=== PATIENT | male | born 1970 | race Caucasian/White ===

== ENCOUNTER → 2021-02-17 | Outpatient (CLI) | payer BC, OTHER ==
[~2021-02-17] MED LIST: ZOCOR20 MG PO
== END ==
LOC: SJCVCIMAG 12:15
PROVIDERS: ATTEND Internal Medicine
DX: I08.2 Rheumatic disorders of both aortic and tricuspid valves (principal); I65.23 Occlusion and stenosis of bilateral carotid arteries; I10 Essential (primary) hypertension

== ENCOUNTER → 2021-02-24 | Outpatient (CLI) | payer BC, OTHER | LOC: SJCVCIMAG 14:31 | PROVIDERS: ATTEND Internal Medicine | DX: E04.1 Nontoxic single thyroid nodule (principal); I44.2 Atrioventricular block, complete; I48.0 Paroxysmal atrial fibrillation; E78.5 Hyperlipidemia, unspecified; Z79.899 Other long term (current) drug therapy; Z95.0 Presence of cardiac pacemaker ==

== ENCOUNTER → 2021-08-18 | Outpatient (CLI) | payer BC, OTHER | LOC: SJCVCIMAG 07:14 | PROVIDERS: ATTEND Internal Medicine | DX: I48.0 Paroxysmal atrial fibrillation (principal); I44.2 Atrioventricular block, complete; E78.5 Hyperlipidemia, unspecified; Z95.0 Presence of cardiac pacemaker; Z79.899 Other long term (current) drug therapy ==

== ENCOUNTER 2021-10-22 23:07 | Inpatient (IN) | payer BC, OTHER ==
[~2021-10-22] VITALS: Ht 180.3 cm; Wt 94.3 kg
[2021-10-22 23:11] VITALS: BP 116/66
[2021-10-22 23:39] LABS: URINE BILIRUBIN NEGATIVE (Negative); URINE BLOOD NEGATIVE (Negative); URINE CLARITY CLEAR; URINE COLOR YELLOW; URINE GLUCOSE-RANDOM* NEGATIVE (Negative); URINE KETONES NEGATIVE (Negative); URINE LEUKOCYTES-REFLEX NEGATIVE (Negative); URINE NITRITE-REFLEX NEGATIVE (Negative); URINE PROTEIN (DIPSTICK) NEGATIVE (Negative); URINE SPECIFIC GRAVITY <= 1.005 (1.005-1.035); URINE UROBILINOGEN 0.2 E.U./dl (0.2-1.0)
[2021-10-22 23:41] LABS: HEMOGLOBIN 15.9 gm/dL (14.0-18.0); MCH 29.7 pg (26.0-34.0)
[2021-10-22 23:42] LABS: ABSOLUTE NEUTROPHILS 3.8 thou/uL (1.4-8.2); BASOPHILS 0.8 % (0.0-2.0); EOSINOPHILS 4.1 % (0.0-3.0); HEMATOCRIT 48.9 % (42.0-52.0); LYMPHOCYTES 28.6 % (24.0-44.0); MCHC 32.6 g/dL (28.0-37.0); MCV 91.1 fL (80.0-100.0); MONOCYTES 11.2 % (1.0-8.0); PLATELET COUNT 208 thou/uL (150-400); POLYS 55.3 % (36.0-66.0); RBC 5.37 mil/uL (4.50-6.00); RDW 13.5 % (10.5-14.5); WBC 6.9 thou/uL (4.0-11.0)
[2021-10-22 23:48] LABS: CALCIUM 9.2 mg/dL (8.5-10.1)
[2021-10-22 23:58] LABS: MAGNESIUM 2.2 mg/dL (1.8-2.4); TOTAL BILIRUBIN 0.3 mg/dL (0.2-1.0); TOTAL PROTEIN 7.7 g/dL (6.4-8.2)
[2021-10-23] VITALS (31 sets, daily range): BP systolic 95–134; BP diastolic 59–102
[2021-10-23 00:34] LABS: INR 0.94; PROTIME 10.3 Seconds (10.5-12.1)
--- NOTE | 2021-10-23 04:00 | NUR ---
This RN admitted patient at 0230 to room 241. Patient arrived on amiodarone and heparin gtt per Dr. Archer. This RN called Dr. Archer at 0325 to discuss patients HR between 130's-160's. Provider wants to remain on amiodarone gtt for now, no new orders received and provider aware of tachycardia, rest of VSS. Will continue to monitor.
--- NOTE | 2021-10-23 04:25 | NUR ---
[employer] PACEMAKER ORIGINAL INTERROGATION IN UNSUCCESSFUL TRANSMITTING REPORT. I WENT TO ICU TO PERFORM AGAIN AT BEDSIDE. REPORT ARRIVED IMMEDIATELY TO ER. DR TOLLIVER ACKNOWLEDGED REPORT. I SENT REPORT TO ICU AND REQUESTED NURSING MAKE PATIENT AWARE REPORT WAS RECEIVED SINCE HE WAS HAVING ANXIETY REGARDING REPORT BEING AVAILABLE FOR CARDIOLOGY.
[2021-10-23 06:44] LABS: CHOLESTEROL 184 mg/dL (<200); HDL CHOLESTEROL 50 mg/dL (>40); LDL CHOLESTEROL 125 mg/dL (<100); TC:HDL 3.7 Ratio (Not establshd); TRIGLYCERIDE 49 mg/dL (<150); VLDL 10 mg/dL (<40)
--- NOTE | 2021-10-23 07:27 | EKG ---
[address] [place] [place] [address] ELECTROCARDIOGRAM REPORT Name: MIKEY FRAZIER Room #: 241-P ADM IN M.R.#: [id number] Admission: 10/23/21 Attend Phys: Vikas Gonzales MD Discharge: Date of : 66 Report #: [id number] [facility] ED Test Date: 2021-10-23 Test Time: 00:38:52 Pat Name: MIKEY FRAZIER Department: Room: 241 Gender: M Jawbone Breaker: kaye salmon : 1970 Requested By: Kane Conley Order Number: [id number] MD: Chuy Boyd Measurements Intervals [place] Rate: 156 P: AR: QRS: 60 QRSD: 96 T: 29 QT: 308 QTc: 496 Interpretive Statements Atrial fibrillation RSR' in V1 or V2, probably normal variant Borderline prolonged QT interval Compared to ECG 08/05/2008 07:24:13 RSR' in V1 or V2 now present Sinus rhythm no longer present Ventricular preexcitation no longer present Electronically Signed On 10-23-2021 7:27:10 SOLUTION DIRECTOR by Chuy Boyd [email or web address] <ELECTRONICALLY SIGNED> By: Chuy Boyd MD, FACC 10/23/21 0727 0038 0038 Chuy Boyd MD, FAC /EPI
--- NOTE | 2021-10-23 13:03 | TEE ---
[facility] [place] [address] TRANSESOPHAGEAL ECHOCARDIOGRAM Name: MIKEY FRAZIER Room #: 241-P ADM IN M.R.#: [id number] Admission: 10/23/21 Attend Phys: Vikas Gonzales MD Discharge: Date of : 66 Report #: [id number] THIS REPORT FOR: cc: Enoch Cameron,Chuy Clifford MD [facility] ~ ADDENDUM APPROVED REPORT Study performed: 10/23/2021 11:39:34 EXAM: Comprehensive 2D, Doppler, and color-flow Echocardiogram Patient Location: ICU Room #: 241 Status: routine BSA: 2.12 HR: 160 bpm BP: 121/74 mmHg Rhythm: Atrial Fibrillation Other Information Study Quality: Good Indications Atrial Fibrillation Echo Enhancing Agent Indication: Rule out Shunt Agent(s) / Amount(s) Used: Agitated Saline 7 cc Procedure After obtaining informed consent, patient underwent transesophageal echo in the Bedside. Type of Sedation : Conscious Sedation Sedation was administered by Nurse. Sedation start time: 1200 Case end Time: 1205 Sedation was achieved intravenously with: Versed (6.5mg) Fentanyl (100mcg) Transesophageal probe was inserted and advanced into esophagus without difficulty by Chuy Boyd MD. Echo enhancement indication: R/O Septal defect. Echo enhancement agent administered: Agitated Saline The STUART was performed without complications. Synchronized Cardioversion acheived with 150 Joules after 1 [facility] [address] [place] [address] TRANSESOPHAGEAL ECHOCARDIOGRAM Name: MIKEY FRAZIER Room #: 241-P [facility] IN [facility].#: [id number] Admission: 10/23/21 Attend Phys: Vikas Gonzales, Discharge: Date of : 66 Report #: [id number] attempt(s). Rhythm following Synchronized Cardioversion: Normal Sinus Rhythm Throughout the procedure, the blood pressure, pulse oximetry, cardiac rhythm, and rate were monitored. The patient tolerated the procedure without adverse effects. Recovery from conscious sedation was uneventful and vital signs were stable. Left Ventricle The left ventricle is normal size. There is normal LV segmental wall motion. There is normal left ventricular wall thickness. The left ventricular systolic function is normal. The left ventricular ejection fraction is within the normal range. LVEF is 55-60%. Right Ventricle The right ventricle is normal size. The right ventricular systolic function is normal. Pacemaker lead is present in the right ventricle. Atria Left atrium is dilated. No thrombus is visualized in the left atrium or appendage. Injection of contrast documented no interatrial shunt. Pacemaker lead is present in the right atrium. Aortic Valve The aortic valve is normal in structure. No aortic regurgitation is present. There is no aortic valvular stenosis. Mitral Valve The mitral valve is normal in structure. Mild mitral regurgitation. No evidence of mitral valve stenosis. Tricuspid Valve The tricuspid valve is normal in structure. There is no tricuspid valve regurgitation noted. Pulmonic Valve The pulmonary valve is normal in structure. There is no pulmonic valvular regurgitation. Great Vessels The aortic root is normal in size. Pericardium There is no pericardial effusion. <Conclusion> [facility] [address] [place] [address] TRANSESOPHAGEAL ECHOCARDIOGRAM Name: MIKEY FRAZIER Room #: 241-P [facility] IN [facility]#: [id number] Admission: 10/23/21 Attend Phys: Vikas Gonzales, Discharge: Date of : 66 Report #: [id number] Consent was obtained Timeout was performed Atrial fibrillation with a rapid ventricular rate in the 160s 180s bpm at baseline Esophageal probe was advanced without difficulty. Normal left ventricle size/wall thickness Ejection fraction 55-60% Normal right ventricular size/function Normal atrial size Left atrial appendage, moderate size no obvious mass or clot detected Pacer wire detected in the right ventricle Normal aortic valve structure and function Mild mitral valve insufficiency No tricuspid valve insufficiency No evidence of ASD/VSD by color flow/bubble study Normal aortic root size No pericardial effusion aorta no calcification detected Patient successfully cardioverted to sinus rhythm after 150 J in a biphasic mode Patient tolerated procedure well Twelve-lead ECG pending <ELECTRONICALLY SIGNED> By: Chuy Boyd MD, FACC 10/23/21 1303 1303 1303 Chuy Boyd MD, FACC /INF
--- NOTE | 2021-10-23 21:19 | NUR ---
PT TRANSFERRED WITH BELONGINGS FROM ROOM 241 TO ROOM 243 AT THE BEGINNING OF SHIFT. UNABLE TO GET A HOLD OF TO NOTIFY HER OF ROOM CHANGE.
[2021-10-24] VITALS: BP 96/60
[2021-10-24 01:00] VITALS: BP 95/55
[2021-10-24 02:06] LABS: GLYCOHEMOGLOBIN (HGB A1C) 5.8 % (4.8-5.6)
[2021-10-24 04:03] VITALS: BP 105/63
[2021-10-24 05:01] LABS: CALCIUM 9.1 mg/dL (8.5-10.1); CREATININE 0.9 mg/dL (0.7-1.3); POTASSIUM 4.7 mmol/L (3.5-5.1)
--- NOTE | 2021-10-24 06:28 | NUR ---
I AGREE WITH ASSESSMENTS DONE BY Lauryn GUEVARA SN
--- NOTE | 2021-10-24 07:13 | EKG ---
[address] [place] [address] ELECTROCARDIOGRAM REPORT Name: MIKEY FRAZIER Room #: 243-P ADM IN M.R.#: [id number] Admission: 10/23/21 Attend Phys: Vikas Gonzales MD Discharge: Date of : 66 Report #: [id number] [facility] ED Test Date: 2021-10-22 Test Time: 23:19:01 Pat Name: MIKEY FRAZIER Department: Room: Replaced by [facility] Gender: M Promotional Marketing Agent: NYLA MASON : 1970 Requested By: Kane Conley Order Number: [id number] MD: Chuy Boyd Measurements Intervals [place] Rate: 160 P: SD: QRS: 65 QRSD: 95 T: 31 QT: 295 QTc: 482 Interpretive Statements Atrial fibrillation with rapid V-rate ST depression, probably rate related Baseline wander in lead(s) V1 Compared to ECG 08/05/2008 07:24:13 ST (T wave) deviation now present Sinus rhythm no longer present Ventricular preexcitation no longer present Electronically Signed On 10-24-2021 7:13:14 SOCIAL SCIENCES RESEARCH SCIENTIST by Chuy Boyd [email or web address] <ELECTRONICALLY SIGNED> By: Chuy Boyd MD, FACC 10/24/21 0713 18 Chuy Boyd MD, FAC /EPI
--- NOTE | 2021-10-24 07:16 | EKG ---
[address] [facility] [place] [address] ELECTROCARDIOGRAM REPORT Name: MIKEY FRAZIER Room #: 243-P ADM IN M.R.#: [id number] Admission: 10/23/21 Attend Phys: Vikas Gonzales MD Discharge: Date of : 66 Report #: [id number] [facility] Test Date: 2021-10-23 Test Time: 12:42:21 Pat Name: MIKEY FRAZIER Department: Room: [facility] Gender: M Home Health Travel Ot: FSCHWALBE : 1970 Requested By: Chuy Boyd Order Number: [id number] MD: Chuy Boyd Measurements Intervals [place] Rate: 66 P: 67 ND: 172 QRS: 5 QRSD: 104 T: 45 QT: 423 QTc: 444 Interpretive Statements Sinus rhythm RSR' in V1 or V2, probably normal variant Compared to ECG 10/23/2021 00:38:52 Atrial fibrillation no longer present Electronically Signed On 10-24-2021 7:16:38 SENIOR TELECOMMUNICATIONS SPECIALIST by Chuy Boyd [email or web address] <ELECTRONICALLY SIGNED> By: Chuy Boyd MD, [facility] 10/24/21 0716 1242 1242 Chuy Boyd MD, FAC /EPI
[2021-10-24 11:33] VITALS: BP 105/63
--- NOTE | 2021-10-24 11:54 | NUR ---
PT A&O X4. DISCHARGE INSTRUCTIONS AND FOLLOW UP APPOINTMENTS DISCUSSED WITH PT AND . ALL QUESTIONS ANSWERED. PT DISCHARGED AT 1145.
[2021-10-24 11:57] VITALS: BP 105/63
== END 2021-10-24 11:47 | disposition home or self-care (01) | DRG 310 ==
LOC: ER 23:07 → EROBS 10-23 01:26 → ICU 10-23 01:26 → EROBS 10-23 01:27 → ICU 10-23 02:29
PROVIDERS: Emergency Medicine; Nurse Practitioner Family; ADMIT Hospitalist; ATTEND Hospitalist
PROC: 5A2204Z Restoration of Cardiac Rhythm, Single (ICD-10-PCS; principal; 2021-10-23)
PROC: B24BZZ4 Ultrasonography of Heart with Aorta, Transesophageal (ICD-10-PCS; principal; 2021-10-23)
DX: I48.91 Unspecified atrial fibrillation (principal); E78.5 Hyperlipidemia, unspecified; Z98.52 Vasectomy status; Z20.822 Contact with and (suspected) exposure to COVID-19; R73.9 Hyperglycemia, unspecified; Z95.0 Presence of cardiac pacemaker
CPT/HCPCS: 10078; 10203

== ENCOUNTER 2021-11-06 09:29 | Observation (INO) | payer BC, OTHER ==
[~2021-11-06] VITALS: Ht 182.9 cm; Wt 96.9 kg
[2021-11-06 10:29] LABS: ABSOLUTE NEUTROPHILS 4.4 thou/uL (1.4-8.2); BASOPHILS 0.4 % (0.0-2.0); EOSINOPHILS 1.3 % (0.0-3.0); HEMATOCRIT 47.7 % (42.0-52.0); HEMOGLOBIN 15.6 gm/dL (14.0-18.0); LYMPHOCYTES 19.4 % (24.0-44.0); MCH 29.8 pg (26.0-34.0); MCHC 32.8 g/dL (28.0-37.0); MCV 90.7 fL (80.0-100.0); MONOCYTES 7.1 % (1.0-8.0); PLATELET COUNT 220 thou/uL (150-400); POLYS 71.8 % (36.0-66.0); RBC 5.26 mil/uL (4.50-6.00); RDW 13.3 % (10.5-14.5); WBC 6.1 thou/uL (4.0-11.0)
[2021-11-06 10:34] VITALS: BP 140/78
[2021-11-06 10:36] LABS: CALCIUM 9.1 mg/dL (8.5-10.1)
[2021-11-06] MEDS ORDERED: XARELTO20 MG PO (10:40)
[2021-11-06] MEDS ORDERED: TAMBOCOR 100 M100 MG PO (10:41)
[2021-11-06] MEDS ORDERED: PROBIOTIC1 EAC7 PO (10:41)
[2021-11-06 10:42] LABS: APTT 31.2 Seconds (24.5-32.8); INR 0.97; PROTIME 10.6 Seconds (10.5-12.1)
[2021-11-06 10:43] LABS: ALBUMIN 4.2 g/dL (3.4-5.0); TOTAL BILIRUBIN 0.4 mg/dL (0.2-1.0); TOTAL PROTEIN 7.7 g/dL (6.4-8.2)
[2021-11-06 18:05] VITALS: BP 119/74
[2021-11-06 19:32] VITALS: BP 136/78
[2021-11-07 04:41] VITALS: BP 117/62
--- NOTE | 2021-11-07 06:01 | NUR ---
PATIENTS CARES WHERE ASSUMED AT SHIFT CHANGE. PATIENT WAS ASSESSED AND MEDS WHERE PASSED. PATIENT A BIT ANXIOUS AT THE START OF THIS SHIFT. HE WAS ABLE TO CALM HIMSELF BY ELEVEN O'CLOCK. AFTER ELEVEN HE WAS ABLE TO SLEEP THE REST OF THIS SHIFT. ROUNDS WHERE DONE. CATH SITS CONTINUE TO BE CLEAN DRY AND INTACK. THE BED IS IN A LOW AND LOCKED POSITION.
[2021-11-07] MEDS ORDERED: FLECAINIDE ACET50 M2 PO (07:28)
[2021-11-07 07:30] VITALS: BP 137/71
--- NOTE | 2021-11-07 08:00 | EKG ---
[place] [address] [facility] [place] [address] ELECTROCARDIOGRAM REPORT Name: MIKEY FRAZIER Reyes Room #: 202-[facility]..#: [id number] Admission: 11/06/21 Attend Phys: Kin Tucker MD Discharge: Date of : 66 Report #: [id number] [facility] Test Date: 2021-11-07 Test Time: 07:46:21 Pat Name: MIKEY FRAZIER Department: Room: 202 P Gender: M Dental Prosthetist: CARLA : 1970 Requested By: Shaye Patterson Order Number: [id number] MD: Michael Matson Measurements Intervals [place] Rate: 63 P: 59 MS: 159 QRS: 9 QRSD: 109 T: 56 QT: 426 QTc: 437 Interpretive Statements Sinus rhythm Abnormal R-wave progression, early transition Compared to ECG 10/23/2021 12:42:21 No significant changes Electronically Signed On 11-07-2021 8:00:11 DIMENSION STONE QUARRY SUPERVISOR by Michael Matson [email or web address] <ELECTRONICALLY SIGNED> By: Michael Matson MD, [facility] 11/07/21 0800 0746 5 Michael Matson MD, FACC /EPI
[2021-11-07 12:00] VITALS: BP 105/57
[2021-11-07 13:07] VITALS: BP 105/57
--- NOTE | 2021-11-07 13:44 | NUR ---
PT IS AXOX4, PLEASANT; SOMEWHAT ANXIOUS. VSS, AFEBRILE, SR ON THE MONITOR. PT STATES THAT VS ARE HIGHER THAN HIS NORMAL. HAS CONCERNS ABOUT POST PROCEDURE; RN, CARDIAC ROTOR PILOT, AND DR OZUNA CONDUCTED EDUCATION. PT TO D/C HOME WITH FOLLOW UP WITH DR ESPARZA. PT D/C HOME WITH . NO CONCERNS AT THIS TIME.
--- NOTE | 2021-11-27 08:28 | P ---
[facility] [place] [address] PROCEDURE REPORT Name: MIKEY FRAZIER Reyes Room #: 202-P [facility] Brendan MHelga.#: [id number] Admission: 11/06/21 Attend Phys: Kin Tucker MD Discharge: 11/07/21 Date of : 66 Report #: [id number] THIS REPORT FOR: cc: Enoch Cameron,Enoch Cheney,Kin Rockwell MD ~ DATE OF SERVICE: 11/06/2021 PREOPERATIVE DIAGNOSIS: Dzery-Dcnzrflvn-Gmftn syndrome. 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 PROCEDURES PERFORMED: 1. SVT ablation, CPT code 80716. 2. EP with left atrial pacing recording, CPT code 20199. 3. Program stimulation pacing after IV drug infusion, CPT code 73130. 4. 3D mapping, CPT code 87203. 5. Preprocedural pacemaker reprogramming, CPT code 25012. 6. Post-procedural pacemaker reprogramming, CPT code 68483. 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 He initially presented to a hospital years ago with AFib with rapid ventricular response and had a long conversion pause, prompting pacemaker. Post-device implant, he was eventually found to have evidence of manifest preexcitation. The patient was recently readmitted to the hospital with AFib with RVR, status post STUART-guided cardioversion. He is here for EP study and possible ablation of his accessory pathway, which may be triggering his atrial fibrillation. ANESTHESIA: The patient underwent MAC anesthesia with no anesthesia related complications. DESCRIPTION OF PROCEDURE: The patient underwent informed consent. He was brought to the EP laboratory in fasting and unsedated state. Pre-procedure, I programmed his pacemaker to the VVI 40 mode. I then obtained access to the bilateral femoral veins placing an 8 and 6-Gambian short sheath in the right femoral vein and 7 and 6-Gambian short sheath in the left femoral vein under fluoroscopy. I placed 3 quadripolar catheters at the HRA, His and RV positions and a Decapolar catheter in the coronary sinus for left atrial pacing and recording. A basic EP study was then performed. At baseline, the patient was in sinus rhythm with a sinus cycle length of 790 milliseconds, VA interval 150 milliseconds, QRS duration 108 milliseconds, QT interval 395 milliseconds, AH interval of 90 milliseconds, and an HV interval of 45 milliseconds. At baseline, there was no evidence of manifest preexcitation; however, with atrial pacing, the patient would demonstrate manifest preexcitation, which showed a [facility] [address] [place] [address] PROCEDURE REPORT Name: MIKEY FRAZIER Room #: 202-P [facility] Brendan Orodnez#: [id number] Admission: 11/06/21 Attend Phys: Kin Tucker MD Discharge: 11/07/21 Date of : 66 Report #: [id number] left bundle branch block morphology, which was positive in II, III and aVF suggestive of a right-sided pathway. Atrial pacing was performed and accessory pathway block was noted at 450 milliseconds and AV block was noted at 280 milliseconds. Atrial ERP was noted at 210 milliseconds at a [address] cycle length. Ventricular pacing was performed and there was atrial and ventricular fusion noted at CS 7-8. With ventricular pacing, there was evidence of VA block via the pathway at 470 milliseconds and then block via the AV node at 460 milliseconds. Next, I delivered a single ventricular extrastimuli and the retrograde effective refractory period of the pathway was 510 milliseconds at a [address] cycle length and VA ERP via the node was at 420 milliseconds at a [address] cycle length. Next, isoproterenol infusion was initiated at 2 mcg per minute and antegrade block via the accessory pathway was at 280 milliseconds, which suggests that this could potentially be a malignant pathway. AV jillian ERP was noted at 200 milliseconds at a [address] cycle length and VA block on isoproterenol was 320 milliseconds. Based on these findings, the patient had an accessory pathway that was catecholaminergic sensitive, and therefore, I decided to proceed with ablation. 3D MAPPING AND ABLATION: Next, I obtained access to the right femoral vein and placed an 8-Gambian short sheath and via this sheath, I placed a PentaRay catheter into the right atrium. While pacing the ventricle, we mapped for the pathway and the Carto map demonstrated that this pathway was originating at the level of the slow pathway. Pacing the atrium and mapping the earliest ventricular signal also mapped the pathway to the same location. I, therefore, removed the PentaRay catheter and placed a Biosense Coffey SmartTouch ThermoCool ablation catheter and did find her mapping of the pathway using the ablation catheter and I found a site of VA and AV fusion with a nice pathway potential noted. Therefore, I placed an SR0 sheath into the right atrium for stability and placed the ablation catheter back at this location. We measured that we were approximately 14 mm from the His bundle. Isoproterenol was turned off and we mapped the pathway wall pacing from the HRA catheter in order to demonstrate loss of the pathway during ablation. Ablation was performed at 30 caraballo and approximately 5 seconds into the burn, there was loss of the accessory pathway antegrade conduction. There was also a stable AV conduction throughout the bryson. Post-ablation, the pathway appeared to come back and therefore, I deflected slightly down approximately 2 mm and ablated here; however, this did not result in loss of the accessory pathway conduction. Therefore, I did some further testing and as I was performing atrial pacing, I noted that we now had a slightly longer VA interval. I continued to perform an EP study and interestingly, there is no longer any VA conduction via the pathway and all retrograde conduction was now via the AV node. AV block via the AV node was noted to be at 360 milliseconds with a longer VA interval. I did resume isoproterenol at 2 mcg per minute and this clearly made the conduction via the pathway improved; however, AV block via the pathway now at 2 mcg per minute was [facility] [address] [place] [address] PROCEDURE REPORT Name: FREDDIEMIKEY Room #: 202-P [facility] Brendan Ordonez#: [id number] Admission: 11/06/21 Attend Phys: Kin Tucker MD Discharge: 11/07/21 Date of : 66 Report #: [id number] 360 milliseconds. I did some further mapping of the pathway potentials and there was a nicely signal somewhat higher than my initial 2 ablation sites. However, given the prolongation of the VA interval, I decided not to perform any further ablation. Post-ablation, the patient was in sinus rhythm. There was still evidence of accessory pathway conduction, but somewhat now less robust. Furthermore, there were still no retrograde conduction via the pathway anymore. As such, the procedure was concluded. Post-ablation, the patient was in sinus rhythm, sinus cycle length of 645 milliseconds, VA interval 240 milliseconds, QRS duration 95 milliseconds, QT interval 350 milliseconds, AH interval 165 milliseconds, and an HV interval of 45 milliseconds. As such, all catheters and sheaths were pulled. Hemostasis was obtained and the patient awoke neurologically and hemodynamically intact. No complications. No significant bleeding. His pacemaker was interrogated and found to be functioning normally and programmed back to its original settings. CONCLUSION: 1. Partially successful ablation of an accessory pathway located near the slow pathway region with no further ablation performed due to slight VA prolongation. 2. Normal SA jillian function. 3. Normal AV jillian function. 4. Normal His-Purkinje function. PLAN: 1. We will resume the patient on low-dose flecainide therapy at 50 b.i.d. 2. We will watch the patient clinically and if he has failure of medications, then we can consider potential repeat ablation with consideration of utilization of cryoablation. <ELECTRONICALLY SIGNED> By: Kin Tucker MD 11/27/21 0828 1109 2149 Kin Tucker MD /nt
== END 2021-11-07 14:00 | disposition home or self-care (01) ==
LOC: CATH 09:29 → 2N 17:52 → CATH 17:53 → 2N 11-07 14:00
PROVIDERS: ADMIT Internal Medicine Cardiovascular Disease; ATTEND Internal Medicine Cardiovascular Disease
DX: I45.6 Pre-excitation syndrome (principal); Z20.822 Contact with and (suspected) exposure to COVID-19; I48.20 Chronic atrial fibrillation, unspecified; E78.5 Hyperlipidemia, unspecified; K90.0 Celiac disease; Z98.890 Other specified postprocedural states
CPT/HCPCS: 10797; 62110; 62900